=== PATIENT | female | born 1985 | race Native Hawaiian/Other Pacific Islander ===

== ENCOUNTER 2020-08-17 01:31 | Emergency (ER) | payer BC ==
[~2020-08-17] VITALS: Ht 162.6 cm; Wt 90.7 kg
[2020-08-17 01:58] LABS: PLATELET COUNT 233 K/uL (152-353)
[2020-08-17 02:05] LABS: POTASSIUM 3.8 mmol/L (3.6-5.2)
[2020-08-17 04:10] VITALS: BP 131/83; TEMP 98.1
== END 2020-08-17 04:10 | disposition home or self-care (01) ==
LOC: ED 01:31
PROVIDERS: Family Medicine
DX: R10.32 Left lower quadrant pain (principal); D25.9 Leiomyoma of uterus, unspecified; R11.2 Nausea with vomiting, unspecified
CPT/HCPCS: 80053; 81000; 85027; 96361; 96374; 96375; 99284; J1885; J2405